=== PATIENT | female | born 1975 | race Caucasian/White ===

== ENCOUNTER 2024-09-22 22:48 | Emergency (ER) | payer OTHER ==
[~2024-09-22] VITALS: Ht 162.6 cm; Wt 80.0 kg
[2024-09-22] MEDS ORDERED: ASPIRIN 81 MG CHEW PO ONE (23:00)
[2024-09-22 23:05] LABS: BASOPHILS 0.8 % (0-2); EOSINOPHILS 1.5 % (0-6); HEMATOCRIT 44.3 % (35.0-50.0); HEMOGLOBIN 14.7 g/dL (12.0-18.0); LYMPHOCYTES 29.8 % (24-44); MCH 31.4 (27-36); MCHC 33.2 g/dl (30-36); MCV 94.7 fl (81-99); MONOCYTES 8.1 % (0-12); NEUTROPHILS 59.8 % (39-80); PLATELET COUNT 251 K/uL (140-440); RBC 4.68 M/ul (4.3-5.7); RDW 13.9 (10.5-15.0)
[2024-09-22 23:22] LABS: ALBUMIN 3.5 g/dL (3.4-5.0); ALBUMIN/GLOBULIN RATIO 0.9 (1.1-2.4); ANION GAP 11.5 (7-21); BILIRUBIN, TOTAL 0.2 ng/dL (0.2-1.0); BUN/CREATININE RATIO 13.67 (6.0-28.6); CALCIUM 9.3 mg/dL (8.5-10.1); CREATININE, SERUM 1.17 mg/dL (0.55-1.02); MAGNESIUM 1.9 mg/dL (1.8-2.4); POTASSIUM 3.5 mmol/L (3.5-5.1); PROTEIN, TOTAL 7.4 g/dL (6.4-8.2)
[2024-09-22] MEDS ORDERED: LIDOCAINE & ANTACID 35 ML BTL PO ONE (23:45)
[2024-09-23] MEDS ORDERED: PROTONIX40 MG PO (01:26)
[2024-09-23] MEDS ORDERED: CARAFATE1 GM PO (01:26)
[2024-09-23 01:48] VITALS: BP 125/78
--- NOTE | 2024-09-23 15:34 | EKG ---
[facility] [address] [facility] [place] [address] Signed Normal sinus rhythm Normal ECG No previous ECGs available Confirmed by Ace Thompson MD () on 09/23/2024 3:34:23 PM Electronically Signed By: ACE THOMPSON MD 09/23/24 1534 PATIENT NAME: ALESSIA HOYOS Electrocardiogram DATE OF : 73 PHYSICIAN: ACE THOMPSON MD REPORT #: [id number] REPORT IS CONFIDENTIAL AND NOT TO BE RELEASED WITHOUT AUTHORIZATION
== END 2024-09-23 01:49 | disposition home or self-care (01) ==
LOC: ED 22:48
PROVIDERS: Family Medicine
DX: R07.89 Other chest pain (principal)
CPT/HCPCS: 36415; 71045; 80053; 83735; 84484; 85025; 85379; 93005; 93010; 99285-25; A9270